=== PATIENT | female | born 1970 | race Caucasian/White ===

== ENCOUNTER 2018-12-26 06:33 | Observation (INO) | payer OTHER, BC ==
[2018-12-26 07:47] LABS: ADD MAN DIFF? NO
[2018-12-26 07:50] LABS: BASOPHILS % 0.3 % (0.0-2.0); EOSINOPHILS # 0.2 10^3/ul (0.0-0.5); EOSINOPHILS % 5.2 % (0.0-7.0); HEMATOCRIT 37.4 % (37.0-47.0); LYMPHOCYTES # 1.5 10^3/ul (0.8-2.9); LYMPHOCYTES % 38.9 % (15.0-51.0); MEAN CORPUSCULAR VOLUME 90.3 fl (82.0-101.0); MEAN PLATELET VOLUME 9.1 fl (7.4-10.4); MONOCYTE # 0.3 10^3/ul (0.3-0.9); NEUTROPHIL # 1.8 10^3/ul (1.6-7.5); NEUTROPHILS % 47.3 % (39.0-77.0); PLATELET COUNT 172 10^3/UL (140-415); RED CELL DISTRIBUTION WIDTH 12.9 % (11.5-14.5)
[2018-12-26 07:55] LABS: HOLD TRANSMISSIONS 1
[2018-12-26 07:57] LABS: HEMOGLOBIN 11.5 g/dl (12.0-16.0); MEAN CORPUSCULAR HEMOGLOBIN 27.8 pg (29.0-33.0); MEAN CORPUSCULAR HGB CONC 30.7 g/dl (32.0-37.0); RED BLOOD COUNT 4.14 10^6/ul (4.20-5.40)
[2018-12-26 07:57] LABS: WHITE BLOOD COUNT 3.9 10^3/ul (4.8-10.8)
[2018-12-26 08:09] LABS: INR 0.91; PROTIME 12.4 Sec (11.9-14.9)
[2018-12-26 08:10] LABS: PARTIAL THROMBOPLASTIN TIME 29.7 Sec (23.0-35.0)
[2018-12-26 08:16] LABS: ALANINE AMINOTRANSFERASE 32 IU/L (13-69); ALBUMIN/GLOBULIN RATIO 1.25; ALKALINE PHOSPHATASE 53 IU/L (42-121); ANION GAP 4 (5-13); ASPARTATE AMINO TRANSFERASE 36 IU/L (15-46); BILIRUBIN,INDIRECT 0.2 mg/dl (0-1.1); BILIRUBIN,TOTAL 0.2 mg/dl (0.2-1.3); BLOOD UREA NITROGEN 15 mg/dl (7-20); CARBON DIOXIDE 29 mmol/L (21-31); CHLORIDE 106 mmol/L (97-110); CREATININE 0.79 mg/dl (0.44-1.00); Estimated GFR > 60 mL/min (>60); GLUCOSE 100 mg/dl (70-220); POTASSIUM 3.7 mmol/L (3.5-5.1); SODIUM 139 mmol/L (135-144); TOTAL PROTEIN 7.2 g/dl (6.1-8.1)
[2018-12-26 11:05] LABS: ADD UMIC NO; UR ASCORBIC ACID NEGATIVE (NEGATIVE); UR BILIRUBIN (Dip) NEGATIVE (NEGATIVE); UR BLOOD (Dip) NEGATIVE (NEGATIVE); UR CLARITY CLEAR (CLEAR); UR COLOR YELLOW (YELLOW); UR GLUCOSE (Dip) NEGATIVE (NEGATIVE); UR KETONES (Dip) NEGATIVE (NEGATIVE); UR LEUKOCYTE ESTERASE (Dip) NEGATIVE Leu/ul (NEGATIVE); UR NITRITE (Dip) NEGATIVE (NEGATIVE); UR SPECIFIC GRAVITY (Dip) 1.014 (1.003-1.030); UR TOTAL PROTEIN (Dip) NEGATIVE (NEGATIVE); UR UROBILINOGEN (Dip) NEGATIVE (NEGATIVE)
[2018-12-26] MEDS: SOD CHLORIDE 0.9% 1,000 ML IV (12:30)
[2018-12-26] MEDS: CEFAZOLIN 1 GM/50 ML (PMX) 50 ML IVPB (12:30)
[2018-12-26] MEDS ORDERED: MIDAZOLAM 1 MG/ML 2 ML INJ (13:20)
[2018-12-26] MEDS ORDERED: FENTAnyl 50 MCG/ML VIAL (13:21)
[2018-12-26] MEDS ORDERED: MEPERIDINE 25 MG INJ IV (13:30)
[2018-12-26] MEDS ORDERED: ALBUTEROL 0.083% (NEB) 2.5 MG/3 ML AMP HHN (13:30)
[2018-12-26] MEDS ORDERED: LABETALOL HCL 20MG INJ IV (13:30)
[2018-12-26] MEDS ORDERED: ONDANSETRON 4 MG INJ IV ×2 (13:30→15:30)
[2018-12-26] MEDS ORDERED: DIPHENHYDRAMINE 50 MG INJ IV (13:30)
[2018-12-26] MEDS ORDERED: FENTAnyl 50 MCG/ML VIAL IV ×3 (13:30)
[2018-12-26] MEDS ORDERED: EPHEDrine 25 MG/5 ML SYG IV (13:30)
[2018-12-26] MEDS ORDERED: hydrALAzine 20 MG INJ IV (13:30)
[2018-12-26] MEDS ORDERED: IPRATROPIUM (NEB) 0.5 MG/2.5 ML AMP HHN (13:30)
[2018-12-26] MEDS ORDERED: OXYCODONE/ACETAMINOPHEN (5/325) TAB PO ×2 (13:30)
[2018-12-26] MEDS ORDERED: HYDROmorphONE 1 MG/5 ML IV SYRINGE IV ×3 (13:30)
[2018-12-26] MEDS ORDERED: ISOSULFAN BLUE 1% 5 ML INJ SC (13:31)
[2018-12-26] MEDS ORDERED: DEXAMETHASONE 4 MG/ML 5 ML INJ (13:40)
[2018-12-26] MEDS: ISOSULFAN BLUE 1% 5 ML INJ SC (13:42)
[2018-12-26] MEDS ORDERED: ONDANSETRON 4 MG INJ (14:07)
[2018-12-26] MEDS ORDERED: PROPOFOL 20 ML ×2 (14:11→14:26)
[2018-12-26] MEDS ORDERED: EPHEDrine 25 MG/5 ML SYG (14:27)
[2018-12-26] MEDS ORDERED: ACETAMINOPHEN 1000MG/100ML IV 100 ML IVPB (15:30)
[2018-12-26] MEDS: D5W-0.45 NACL + KCL 20 MEQ 1,000 ML IV (17:21)
[2018-12-26] MEDS: morphine 2 MG INJ IV ×2 (17:21→20:45)
[2018-12-27] MEDS: D5W-0.45 NACL + KCL 20 MEQ 1,000 ML IV ×2 (01:12→11:24)
[2018-12-27] MEDS: HYDROCODONE/APAP (5/325) TAB PO (11:24)
== END 2018-12-27 18:11 | disposition home or self-care (01) ==
LOC: SDS 06:33 → REC 15:33 → MS1 17:04
DX: D05.12 Intraductal carcinoma in situ of left breast (principal); Z17.0 Estrogen receptor positive status [ER+]
CPT/HCPCS: 19301; 71045; 80053; 81003; 84703; 85025; 85610; 85730; 88307; 88331; 88342; 99217